=== PATIENT | female | born 1970 | race Caucasian/White ===

== ENCOUNTER 2016-03-14 16:11 | Emergency (ER) | payer BC ==
[2016-03-14 16:40] VITALS: BP 119/67
--- NOTE | 2016-03-14 17:00 | UC ---
Back Pain HPI - HPI Summary HPI Summary: The patient comes in today for: 1. Left flank pain: Onset: Lower back "issues" for 4-6 weeks. But, the "thing on the side is newer for the past several days." Palliative/provocative: She took 400 mg ibuprofen at 10 AM and this helped, as did possibly moving around. Quality: "Dull thing in the waist area." Region: Left flank, but she had radiation down towards the groin. Severity: "Under 5/10." Time: "It's hard for me to tip bander." Associated symptoms: Previous history: 1. Right nephrectomy: 2008 due to complex cysts. She had it removed in [facility] for possible malignancy--none--all benigh. 2. Ruptured disc: 2003 at L4-L5 3. Renal stones: None. Hematuria: Only prior to her right nephrectomy. 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 Last BUN/Cr in [facility] was 14/1.20 in November of 2011. She denies any sciatica pain. She denies any numbness or weakness. She denies any unexpected weight loss or bowel/bladder incontinence. * - History of Current Complaint Chief Complaint: UCBackPain Stated Complaint: BACK PAIN Time Seen by Provider: 03/14/16 16:29 Hx Obtained From: Patient Hx Last Menstrual Period: perimenopause; february 05 ?: No - Allergies/Home Medications Allergies/Adverse Reactions: Allergies Allergy/AdvReac Type Severity Reaction Status Date / Time No Known Allergies Allergy Verified 12/01/11 19:05 Home Medications: Home Medications Ibuprofen [Ibuprofen 200 MG] 200 mg PO 03/14/16 [History] PMH/Surg Hx/FS Hx/Imm Hx Previously Healthy: No - Left nephrectomy. Endocrine History Of: Denies: Diabetes, Thyroid Disease, Hyperthyroidism, Hypothyroidism, Dyslipidemia Cardiovascular History Of: Denies: Cardiac Disorders, Hypertension, Pacemaker/ICD, Myocardial Infarction , Congestive Heart Failure, Atrial Fibrillation, Deep Vein Thrombosis, Bleeding Disorders Respiratory History Of: Denies: COPD, Asthma, Bronchitis, Pneumonia, Pulmonary Embolism GI/ History Of: Denies: Gastroesophageal Reflux, Ulcer, Gastrointestinal Bleed, Gall Bladder Disease, Kidney Stones, Diverticulitis, Renal Disease, Urosepsis Neurological History Of: Denies: TIA, CVA, Dementia, Seizures, Migraine Psychological History Of: Denies: Anxiety, Depression, Bipolar Disorder, Schizophrenia, Post Traumatic Stress Disorder Cancer History Of: Denies: Lung Cancer, Colorectal Cancer, Breast Cancer, Prostate Cancer, Cervical Cancer Other History Of: Negative For: HIV, Hepatitis B, Hepatitis C, Anticoagulant Therapy - Surgical History Surgical History: Yes Surgery Procedure, Year, and Place: Nephrectomy for Complex cyst left kidney, 2009 Discectomy L-4, L-5 2003 - Family History Known Family History: Positive: Hypertension Negative: Cardiac Disease, Renal Disease - Social History Occupation: Employed Full-time Alcohol Use: Weekly Substance Use Type: None Smoking Status (MU): Never Smoked Tobacco Review of Systems Constitutional: Negative Skin: Negative Eyes: Negative ENT: Negative Respiratory: Negative Cardiovascular: Negative Gastrointestinal: Negative Genitourinary: Negative All Other Systems Reviewed And Are Negative: Yes Physical Exam Triage Information Reviewed: Yes Appearance: Well-Appearing, No Pain Distress, Well-Nourished Vital Signs: Initial Vital Signs Temp 98.2 F 03/14/16 16:29 Pulse 72 03/14/16 16:29 Resp 16 03/14/16 16:29 BP 119/67 03/14/16 16:29 Pulse Ox 97 03/14/16 16:29 Vital Signs Reviewed: Yes Eyes: Positive: Conjunctiva Clear. Negative: Discharge ENT: Positive: Hearing grossly normal. Negative: Pharyngeal erythema, Nasal congestion, Nasal drainage, TM bulging, TM dull, TM red, Tonsillar swelling, Tonsillar exudate Dental: Negative: Gross Decay/Caries @, Dental Fracture @ Neck: Positive: Supple, Nontender, No Lymphadenopathy. Negative: Nuchal Rigidity Respiratory: Positive: Chest non-tender, Lungs clear, No respiratory distress, No accessory muscle use. Negative: Crackles, Wheezing Cardiovascular: Positive: RRR, No Murmur Abdomen Description: Positive: Nontender, No Organomegaly, Soft. Negative: CVA Tenderness (R), CVA Tenderness (L), Distended, Guarding Musculoskeletal: Positive: Strength Intact, ROM Intact, No Edema Neurological: Positive: Alert, Muscle Tone Normal Psychological: Positive: Age Appropriate Behavior, Consolable Skin: Negative: rashes, breakdown Diagnostics - Laboratory Diagnostic Studies Completed/Ordered: Urine screen: Specific gravity: 1.015. WBC: 75. Nitrite: (-). Blood: (-). PRotein: (-). Glucose: 50. Back Pain Course/Dx - Differential Dx/Diagnosis Provider Diagnoses: Left flank pain (possible renal stone). Pyuria possible urinary tract infection. s/p right nephrectomy. Hx "herniated disc." - Physician Notifications Discussed Patient Care With: GINA Dueñas Time Discussed With Above Provider: 17:23 Discharge - Discharge Plan Condition: Stable Disposition: AGAINST MEDICAL ADVICE Additional Instructions: Please go directly to the [facility] for further evaluation and treatment.
== END 2016-03-14 17:30 | disposition left against medical advice (07) ==
LOC: UCEAST 16:11
DX: R10.9 Unspecified abdominal pain (principal); Z90.5 Acquired absence of kidney
CPT/HCPCS: 81002; 87077; 87086; 87186; 99212; G0463

== ENCOUNTER 2016-03-14 17:49 | Emergency (ER) | payer BC ==
[2016-03-14 18:04] VITALS: BP 134/94
[2016-03-14 18:52] LABS: Urine Bacteria Absent (Absent); Urine Bilirubin Negative (Negative); Urine Glucose Negative (Negative); Urine Nitrite Negative (Negative)
[2016-03-14 19:15] LABS: Hematocrit 42 % (35-47); Hemoglobin 14.1 g/dl (12.0-16.0); Mean Corpuscular HGB Conc 33 g/dl (31-36); Mean Corpuscular Hemoglobin 29 pg (27-31); Mean Corpuscular Volume 87 fL (80-97); Mean Platelet Volume 8 um3 (7.4-10.4); Red Blood Count 4.85 10^6/ul (4.0-5.4); Red Cell Distribution Width 12 % (10.5-15); White Blood Count 6.4 10^3/ul (3.5-10.8)
[2016-03-14 19:29] LABS: Albumin 4.1 g/dL (3.2-5.2); BUN/Creatinine Ratio 14.8 (8-20); Calcium 9.5 mg/dL (8.6-10.3); EGFR African American 64.8 (>60); EGFR Non-African American 50.4 (>60); Globulin 3.1 g/dL (2-4); Potassium 3.7 mmol/L (3.5-5.0); Total Bilirubin 0.3 mg/dL (0.2-1.0); Total Protein 7.2 g/dL (6.4-8.9)
--- NOTE | 2016-03-14 20:48 | ED ---
Zulma Padilal Rebecca, scribed for Hayden Paniagua MD on 03/14/16 at 1838 . Back Pain - HPI Summary HPI Summary: Pt is a 46 y/o F referred from Urgent Care who presents to ED c/o L flank pain. Pain began gradually 5 days ago and has been constant since onset, but waxes and wanes in intensity. Pain is discrete to the L flank with occasional radiation to the L groin, is currently ranked 3/10 and characterized as muscle aching. Sx alleviated by Advil (last taken at 1000 today) and aggravated by nothing. Additionally c/o increased urinary frequency since today. Denies fever , chills, diaphoresis, N/V, dysuria. Current episode is similar to prior episode when she had a kidney infection. States that current sx are not similar to prior UTIs. PMHx chronic back pain (current pain is dissimilar). No PMHx STIs. - History of Current Complaint Chief Complaint: EDFlankPain Stated Complaint: LT FLANK PAIN/CONV CARE Time Seen by Provider: 03/14/16 18:09 Hx Obtained From: Patient Hx Last Menstrual Period: perimenopause; february 05 Onset/Duration: Gradual Onset, Lasting Days - 5 days ago, Still Present Timing: Constant Back Pain Location: Is Discrete @ - L flank, Radiates To - L groin Severity Initially: Mild Severity Currently: Mild Pain Intensity: 3 Pain Scale Used: 0-10 Numeric Character: Aching Aggravating Symptom(s): Nothing Alleviating Symptom(s): OTC Meds - Advil Associated Signs And Symptoms: Positive: Flank Pain - Left, Other - Increased urinary frequency. Negative: Fever Related History: Similar Episode Dx As - Prior kidney infection - Allergies/Home Medications Allergies/Adverse Reactions: Allergies Allergy/AdvReac Type Severity Reaction Status Date / Time No Known Allergies Allergy Verified 03/14/16 17:56 PMH/Surg Hx/FS Hx/Imm Hx Endocrine/Hematology History: Denies: Hx Anticoagulant Therapy, Hx Diabetes, Hx Thyroid Disease Cardiovascular History: Denies: Hx Congestive Heart Failure, Hx Deep Vein Thrombosis, Hx Hypertension , Hx Myocardial Infarction, Hx Pacemaker/ICD Respiratory History: Denies: Hx Asthma, Hx Chronic Obstructive Pulmonary Disease (COPD), Hx Lung Cancer, Hx Pneumonia, Hx Pulmonary Embolism GI History: Denies: Hx Gall Bladder Disease, Hx Gastrointestinal Bleed, Hx Ulcer, Hx Urosepsis History: Denies: Hx Kidney Stones, Hx Renal Disease Sensory History: Denies: Hx Hearing Aid Neurological History: Denies: Hx Dementia, Hx Migraine, Hx Seizures, Hx Transient Ischemic Attacks (TIA), Other Neuro Impairments/Disorders Psychiatric History: Denies: Hx Anxiety, Hx Depression, Hx Panic Disorder, Hx Schizophrenia, Hx Bipolar Disorder - Cancer History Cancer Type, Location and Year: pt had the right kidney removed - Surgical History Surgery Procedure, Year, and Place: Nephrectomy for Complex cyst left kidney, 2009 Discectomy L-4, L-5 2003 Infectious Disease History: No Infectious Disease History: Denies: Hx Hepatitis, Hx Human Immunodeficiency Virus (HIV), Traveled Outside the [place] in Last 30 Days - Family History Known Family History: Positive: Hypertension Negative: Cardiac Disease, Renal Disease - Social History Alcohol Use: Weekly Substance Use Type: Reports: None Smoking Status (MU): Never Smoked Tobacco Review of Systems Negative: Fever, Chills, Skin Diaphoresis Negative: Vomiting, Nausea Positive: frequency. Negative: dysuria Positive: Other - Left flank pain All Other Systems Reviewed And Are Negative: Yes Physical Exam - Summary Physical Exam Summary: General: Comfortable, pleasant, alert, nontoxic HEENT: Moist mucosa Neck: Soft, supple, no adenopathy, no edema Heart: S1, S2, RRR, no murmurs, rubs, or gallops Lungs: Clear to auscultation, breathing comfortable, no wheezes or rales Abdominal: Soft, flat, periumbilical tenderness in the left without guarding or rebound Extremities: No edema, no calf tenderness, no CVA tenderness, some tenderness in the left SI area, slight tenderness in the left paravertebral muscle. Is able to transfer, bend over and touch her toes which does elicit some pain in the same area. Neuro: Alert and oriented x 3 Psych: Logical, coherent Triage Information Reviewed: Yes Vital Signs On Initial Exam: Initial Vitals Temp Pulse Resp BP Pulse Ox 98.3 F 73 18 134/94 99 03/14/16 17:56 03/14/16 17:56 03/14/16 17:56 03/14/16 17:56 03/14/16 17:56 Vital Signs Reviewed: Yes Diagnostics - Vital Signs Vital Signs Temp Pulse Resp BP Pulse Ox 03/14/16 17:56 98.3 F 73 18 134/94 99 - Laboratory Lab Results: Lab Results 03/14/16 03/14/16 03/14/16 Range/Units 17:00 17:00 18:20 WBC 6.4 (3.5-10.8) 10^3/ul RBC 4.85 (4.0-5.4) 10^6/ul Hgb 14.1 (12.0-16.0) g/dl Hct 42 (35-47) % MCV 87 (80-97) fL MCH 29 (27-31) pg MCHC 33 (31-36) g/dl RDW 12 (10.5-15) % Plt Count 232 (150-450) 10^3/ul MPV 8 (7.4-10.4) um3 Neut % (Auto) 45.0 (38-83) % Lymph % (Auto) 41.7 (25-47) % [place] % (Auto) 7.7 (1-9) % Eos % (Auto) 4.7 (0-6) % Baso % (Auto) 0.9 (0-2) % Absolute Neuts (auto) 2.9 (1.5-7.7) 10^3/ul Absolute Lymphs (auto) 2.7 (1.0-4.8) 10^3/ul Absolute Monos (auto) 0.5 (0-0.8) 10^3/ul Absolute Eos (auto) 0.3 (0-0.6) 10^3/ul Absolute Basos (auto) 0.1 (0-0.2) 10^3/ul Absolute Nucleated RBC 0 10^3/ul Nucleated RBC % 0.1 Sodium 137 (133-145) mmol/L Potassium 3.7 (3.5-5.0) mmol/L Chloride 105 (101-111) mmol/L Carbon Dioxide 28 (22-32) mmol/L Anion Gap 4 (2-11) mmol/L BUN 17 (6-24) mg/dL Creatinine 1.15 H (0.51-0.95) mg/dL Est GFR ( Amer) 64.8 (>60) Est GFR (Non-Af Amer) 50.4 (>60) BUN/Creatinine Ratio 14.8 (8-20) Glucose 110 H (70-100) mg/dL Calcium 9.5 (8.6-10.3) mg/dL Total Bilirubin 0.30 (0.2-1.0) mg/dL AST 16 (13-39) U/L ALT 20 (7-52) U/L Alkaline Phosphatase 49 (34-104) U/L Total Protein 7.2 (6.4-8.9) g/dL Albumin 4.1 (3.2-5.2) g/dL Globulin 3.1 (2-4) g/dL Albumin/Globulin Ratio 1.3 (1-3) Urine Color Straw Urine Appearance Clear Urine pH 5.0 (5-9) Ur Specific [place] 1.004 L (1.010-1.030) Urine Protein Negative (Negative) Urine Ketones Negative (Negative) Urine Blood Negative (Negative) Urine Nitrate Negative (Negative) Urine Bilirubin Negative (Negative) Urine Urobilinogen Negative (Negative) Ur Leukocyte Esterase Trace H (Negative) Urine WBC (Auto) Trace(0-5/hpf) (Absent) Urine RBC (Auto) Absent (Absent) Ur Squamous Epith Cells Present H (Absent) Urine Bacteria Absent (Absent) Urine Glucose Negative (Negative) Result Diagrams: 03/14/16 17:00 03/14/16 17:00 Lab Statement: Any lab studies that have been ordered have been reviewed, and results considered in the medical decision making process. Back Pain Course/Dx - Course Assessment/Plan: Comes in with left flank pain exacerbated with certain movements, it seems. The one remaining kidney she thought was on the left, but it turns out it is on the right. Has no clear urinary sx. UA is clear. Blood work totally normal and does not have CVA tenderness whch would be worrisome for stone or pyelonephritis. Regardless, good kidney is on the R and that is not the same side as her sx. Because sx are exacerbated with certain movements and there is some tenderness, likely this is musculoskeletal. - Diagnoses Differential Diagnosis/HQI/PQRI: Positive: Aneurysm, Cauda Equina Syndrome, Compressive Cord Syndrome, Epidural Abscess, Fracture, Herniated Disc, Neoplasm , Osteomyelitis, Osteoporosis, Renal Colic, Septic Arthritis, Strain, Sprain Provider Diagnoses: Low back pain Discharge - Discharge Plan Condition: Good Disposition: HOME Patient Education Materials: Lower Back Exercises (ED) Referrals: Tressa Vides MD [Primary Care Provider] - 2 Weeks The documentation as recorded by the Zulma vaughan Rebecca accurately reflects the service I personally performed and the decisions made by me, Hayden Paniagua MD.
== END 2016-03-14 19:47 | disposition home or self-care (01) ==
LOC: ED 17:49
DX: M54.5 Low back pain (principal); G89.29 Other chronic pain
CPT/HCPCS: 36415; 80053; 81002; 81003; 81015; 85025; 87077; 87086; 87186; 99212; 99282; G0463

== ENCOUNTER 2018-03-31 09:23 | Emergency (ER) | payer BC ==
[2018-03-31 10:24] LABS: ABS Basophils 0.1 10^3/ul (0-0.2); ABS Eosinophils 0.2 10^3/ul (0-0.6); ABS Lymphocytes 1.8 10^3/ul (1.0-4.8); ABS Monocytes 0.5 10^3/ul (0-0.8); ABS Neutrophils 4.6 10^3/ul (1.5-7.7); ABS Nucleated RBC 0 10^3/ul; Eosinophil % 2.4 %; Hematocrit 43 % (35-47); Hemoglobin 14.9 g/dl (12.0-16.0); Lymphocyte % 25.5 %; Mean Corpuscular HGB Conc 35 g/dl (31-36); Mean Corpuscular Hemoglobin 30 pg (27-31); Mean Corpuscular Volume 87 fL (80-97); Mean Platelet Volume 7.3 fL (7.4-10.4); Nucleated Red Blood Cells % 0.1; Platelet Count 298 10^3/ul (150-450); Red Blood Count 4.95 10^6/ul (4.00-5.40); Red Cell Distribution Width 12 % (10.5-15); White Blood Count 7.2 10^3/ul (3.5-10.8)
--- NOTE | 2018-03-31 10:37 | ED ---
Lower Extremity - HPI Summary HPI Summary: 48-year-old female presents with left foot pain for the past day. She denies any known injury. No numbness or tingling. she states is greatest over the lateral aspect of her foot. She says occasionally radiates up to side of her leg. Edema noted to her foot. She is not on control. She denies any chance she is . No family history of blood clots. She is nonsmoker. No recent travel. No recent surgeries. No chest pain or shortness breath. No other pain. She's never had this pain before. No history of gout. - History of Current Complaint Chief Complaint: EDExtremityLower Stated Complaint: PAIN IN LEFT FOOT Time Seen by Provider: 03/31/18 10:00 Hx Last Menstrual Period: perimenopause; february 05 Pain Intensity: 8 - Allergies/Home Medications Allergies/Adverse Reactions: Allergies Allergy/AdvReac Type Severity Reaction Status Date / Time No Known Allergies Allergy Verified 03/31/18 09:28 PMH/Surg Hx/FS Hx/Imm Hx Endocrine/Hematology History: Denies: Hx Anticoagulant Therapy, Hx Diabetes, Hx Thyroid Disease Cardiovascular History: Denies: Hx Congestive Heart Failure, Hx Deep Vein Thrombosis, Hx Hypertension , Hx Myocardial Infarction, Hx Pacemaker/ICD Respiratory History: Denies: Hx Asthma, Hx Chronic Obstructive Pulmonary Disease (COPD), Hx Lung Cancer, Hx Pneumonia, Hx Pulmonary Embolism GI History: Denies: Hx Gall Bladder Disease, Hx Gastrointestinal Bleed, Hx Ulcer, Hx Urosepsis History: Denies: Hx Kidney Stones, Hx Renal Disease Sensory History: Denies: Hx Hearing Aid Neurological History: Denies: Hx Dementia, Hx Migraine, Hx Seizures, Hx Transient Ischemic Attacks (TIA), Other Neuro Impairments/Disorders Psychiatric History: Denies: Hx Anxiety, Hx Depression, Hx Panic Disorder, Hx Schizophrenia, Hx Bipolar Disorder - Cancer History Cancer Type, Location and Year: pt had the right kidney removed - Surgical History Surgery Procedure, Year, and Place: Nephrectomy for Complex cyst left kidney, 2009 Discectomy L-4, L-5 2003 - Immunization History Date of Tetanus Vaccine: unk Date of Influenza Vaccine: none Infectious Disease History: No Infectious Disease History: Denies: Hx Hepatitis, Hx Human Immunodeficiency Virus (HIV), Traveled Outside the [place] in Last 30 Days - Family History Known Family History: Positive: Hypertension Negative: Cardiac Disease, Renal Disease - Social History Alcohol Use: Weekly Substance Use Type: Reports: None Smoking Status (MU): Never Smoked Tobacco Review of Systems Negative: Fever Negative: Chest Pain Negative: Shortness Of Breath Positive: Myalgia - left foot pain All Other Systems Reviewed And Are Negative: Yes Physical Exam Triage Information Reviewed: Yes Vital Signs On Initial Exam: Initial Vitals Temp Pulse Resp BP Pulse Ox 99.4 F 71 16 119/89 100 03/31/18 09:25 03/31/18 09:25 03/31/18 09:25 03/31/18 09:25 03/31/18 09:25 Vital Signs Reviewed: Yes Appearance: Positive: Pain Distress Skin: Positive: Warm, Dry Head/Face: Positive: Normal Head/Face Inspection Eyes: Positive: Normal, Conjunctiva Clear ENT: Positive: Pharynx normal Respiratory/Lung Sounds: Positive: Clear to Auscultation, Breath Sounds Present Cardiovascular: Positive: Normal, RRR Musculoskeletal: Positive: Strength/ROM Intact - left foot with pain, Other - tenderness left lateral foot from below lateal malleolus to left 5th metacarpel , nontender over achilles tendon or calf, good pulses, sensation grossly intact. capillary refill<2 secs Neurological: Positive: Normal Psychiatric: Positive: Normal Diagnostics - Vital Signs Vital Signs Temp Pulse Resp BP Pulse Ox 03/31/18 09:25 99.4 F 71 16 119/89 100 - Laboratory Lab Results: Lab Results 03/31/18 Range/Units 10:15 WBC 7.2 (3.5-10.8) 10^3/ul RBC 4.95 (4.00-5.40) 10^6/ul Hgb 14.9 (12.0-16.0) g/dl Hct 43 (35-47) % MCV 87 (80-97) fL MCH 30 (27-31) pg MCHC 35 (31-36) g/dl RDW 12 (10.5-15) % Plt Count 298 (150-450) 10^3/ul MPV 7.3 L (7.4-10.4) fL Neut % (Auto) 64.1 % Lymph % (Auto) 25.5 % [place] % (Auto) 6.9 % Eos % (Auto) 2.4 % Baso % (Auto) 1.1 % Absolute Neuts (auto) 4.6 (1.5-7.7) 10^3/ul Absolute Lymphs (auto) 1.8 (1.0-4.8) 10^3/ul Absolute Monos (auto) 0.5 (0-0.8) 10^3/ul Absolute Eos (auto) 0.2 (0-0.6) 10^3/ul Absolute Basos (auto) 0.1 (0-0.2) 10^3/ul Absolute Nucleated RBC 0 10^3/ul Nucleated RBC % 0.1 ESR Pending Result Diagrams: 03/31/18 10:15 03/31/18 10:15 Lab Statement: Any lab studies that have been ordered have been reviewed, and results considered in the medical decision making process. - Radiology foot Radiology Interpretation Completed By: Radiologist Summary of Radiographic Findings: IMPRESSION: SOFT TISSUE SWELLING, NO FRACTURE IS SEEN. Lower Extremity Course/Dx - Course Course Of Treatment: 48-year-old female presents with left foot pain for the past day. She denies any known injury. No numbness or tingling. she states is greatest over the lateral aspect of her foot. She says occasionally radiates up to side of her leg. Edema noted to her foot. She is not on control. She denies any chance she is . No family history of blood clots. She is nonsmoker. No recent travel. No recent surgeries. No chest pain or shortness breath. No other pain. She's never had this pain before. No history of gout. On exam tenderness over lateral aspect of left foot. Neurovascular intact. X-ray shows soft tissue swelling. neurovascular intact. Told to ice elevate. Gave ortho referrals if no improvement. Patient understands agrees with plan - Diagnoses Differential Diagnosis/HQI/PQRI: Positive: Fracture (Closed), Sprain, Strain Provider Diagnoses: Left foot pain Discharge - Sign-Out/Discharge Documenting (check all that apply): Patient Departure Patient Received Moderate/Deep Sedation with Procedure: No - Discharge Plan Condition: Good Disposition: HOME Patient Education Materials: R.I.C.E. Treatment (ED) Referrals: Tressa Vides MD [Primary Care Provider] - Asia Cruz MD [Medical Doctor] - Additional Instructions: Follow up with ortho if no improvement ice, elevate can place jagruti on area Take tyenlol every 6 hours as needed for pain Return to ED if develop calf pain, fever, spreading redness or any new or worsening symptoms - Billing Disposition and Condition Condition: GOOD Disposition: Home
[2018-03-31 11:12] LABS: Albumin 4.4 g/dL (3.2-5.2); Albumin/Globulin Ratio 1.4 (1-3); BUN/Creatinine Ratio 15.4 (8-20); C Reactive Protein 8.14 mg/L (<8.01); Calcium 9.5 mg/dL (8.6-10.3); EGFR African American 55.9 (>60); EGFR Non-African American 46.2 (>60); Globulin 3.2 g/dL (2-4); Total Bilirubin 0.6 mg/dL (0.2-1.0); Total Protein 7.6 g/dL (6.4-8.9)
[2018-03-31] MEDS ORDERED: Ketorolac INJ* 30 MG/ML 1 ML VIAL IM ONE (11:25)
[2018-03-31] MEDS ORDERED: Ibuprofen TAB* 400 MG PO ONE (11:58)
[2018-03-31 12:09] VITALS: BP 121/86
[2018-03-31 12:31] LABS: Erythrocyte Sed Rate 32 mm/Hr (0-30)
[2018-04-01 23:54] LABS: B garinii/B afzelii PCR Negative (Negative); B mayonii PCR Negative (Negative)
== END 2018-03-31 12:09 | disposition home or self-care (01) ==
LOC: ED 09:23
DX: M79.672 Pain in left foot (principal); Z86.73 Personal history of transient ischemic attack (TIA), and cerebral infarction without residual deficits; Z90.5 Acquired absence of kidney
CPT/HCPCS: 36415; 80053; 85025; 85652; 86140; 87476; 87798; 96372; 99281; A9270-GY; J1885